=== PATIENT | male | born 1950 | race Caucasian/White ===

== ENCOUNTER 2016-08-11 19:05 | Inpatient (IN) | payer BC ==
--- NOTE | ~2016-08-11 | HP ---
History And Physical [address] [place]. [address] NAME: HAYDEN MARQUEZ : 46 STATUS : ADM IN PAT#: [id number] AGE: 66 ADM/REG DATE : 08/11/16 MR#: [id number] REPORT SERV DATE: 08/15/16 DICTATED BY: CHI TROTTER II DATE: 08/15/16 REPORT STATUS : Draft TRANSCRIBED BY: MODL DATE: 08/15/16 DATE OF ADMISSION: 08/11/2016 DATE OF SURGERY: 08/12/2016. CHIEF COMPLAINT: Thoracic pain. HISTORY OF PRESENT ILLNESS: This is a very friendly gentleman reporting severe pain for the last several months. He is admitted for pain control and likely definitive treatment of his osteomyelitis. PAST MEDICAL HISTORY: As above. MEDICATIONS: Please see the MAR. ALLERGIES: PLEASE SEE THE MAR. REVIEW OF SYSTEMS: The patient denies any bowel or bladder changes. He does report severe pain with some weakness in his lower extremities. PHYSICAL EXAMINATION: GENERAL: Examination reveals a gentleman in mild distress. He is awake, alert, and oriented. NECK: Supple. CHEST: Reveals no stridor on inspiration or expiration. CARDIOVASCULAR: Regular rate and rhythm. I palpated the radial pulse. ABDOMEN: Soft. BACK: Does reveal some focal kyphosis with some mild gibbus deformity. NEUROLOGICAL: He has 4/5 strength in the lower extremities. IMAGING DATA: Imaging reveals destruction of T11 and T12 consistent with diskitis and osteomyelitis. MEDICAL DECISION MAKING: A 66-year-old gentleman with thoracic osteomyelitis and diskitis. The plan will be for inpatient admission for pain control and likely surgical intervention. We will have Infectious Disease also help us with the management of this patient. REJI/ANDERS Chi Trotter II, M.D. / [id number] History And Physical [address] [place]. [address] NAME: HAYDEN MARQUEZ ODALIS : 46 STATUS : ADM IN [facility]#: [id number] AGE: 66 ADM/REG DATE : 08/11/16 MR#: [id number] REPORT SERV DATE: 08/15/16 DICTATED BY: CHI TROTTER II DATE: 08/15/16 REPORT STATUS : Draft TRANSCRIBED BY: BARIL DATE: 08/15/16 CC: Phong Simms II, D.O.
--- NOTE | ~2016-08-11 | CN ---
Consultation Report [facility] [address] [place]. [address] NAME: HAYDEN MERRITT : 46 STATUS : DIS IN PAT#: [id number] AGE: 66 ADM/REG DATE : 08/11/16 MR#: [id number] REPORT SERV DATE: 08/31/16 DICTATED BY: EDMUNDO ARVIZU DATE: 08/31/16 REPORT STATUS : Draft TRANSCRIBED BY: MODL DATE: 08/31/16 DATE OF CONSULTATION: HISTORY OF PRESENT ILLNESS: Mr. Merritt is a long-term patient, 66 years old, whom I have seen over the years for urinary retention secondary to urethral stricture disease. At some recent juncture, he was admitted to [facility] and was seen by Dr. Worthington there for urethral stricture disease. A suprapubic tube was placed and apparently according to Mr. Merritt, there are plans for urethroplasty to be done by Dr. Worthington. He is admitted with a nonurologic cause, that being diskitis and osteomyelitis following spinal surgery. He is currently being treated with broad-spectrum antibiotics and will/has been seen by Infectious Disease. PHYSICAL EXAMINATION: : Suprapubic tube is patent and draining clear yellow urine. Genitalia normal, uncircumcised with normal scrotum, testes, perineum. Rectal exam is not done at this time. EXTREMITIES: Unremarkable without edema. IMPRESSION: 1. Urethral stricture disease. 2. Suprapubic tube cystostomy diversion. PLAN: The patient is to go to surgery for debridement. Special care should be taken not to disrupt or dislodge the suprapubic tube. I will be available as needed and appreciate your asking me to see this long-term patient. MS/MODL Edmundo Arvizu M.D. / [id number] CC: Phong Simms II, D.O. Donald Hartsfield, D.O.
--- NOTE | ~2016-08-11 | CN ---
Consultation Report [facility] [address] [place]. [address] NAME: HAYDEN MARQUEZ : 46 STATUS : ADM IN PAT#: [id number] AGE: 66 ADM/REG DATE : 08/11/16 MR#: [id number] REPORT SERV DATE: 08/12/16 DICTATED BY: DANIS PENNINGTON DATE: 08/12/16 REPORT STATUS : Draft TRANSCRIBED BY: MODL DATE: 08/12/16 INFECTIOUS DISEASE CONSULTATION DATE OF CONSULTATION: 08/12/2016 REASON FOR CONSULTATION: Thoracic diskitis/osteomyelitis. HISTORY OF PRESENT ILLNESS: This is a 66-year-old man with a past medical history notable for coronary artery disease, hypertension, hyperlipidemia, osteoarthritis, and bilateral total knee arthroplasties. He also more recently was found to have urethral stricture which had caused him progressive difficulties with voiding beginning sometime in the latter part of 2015. He states that in mid March of this year he started getting some back pain and spasms. He was then hospitalized at [facility] on 05/13 with a febrile illness. The patient tells me he was told he had pneumonia, E. coli, and UTI. He is uncertain if he has had positive blood cultures. I called the microbiology laboratory at [place] and they have no record of any positive blood cultures at that time. The patient was at [facility] for two and half weeks. During that hospitalization, he had a suprapubic catheter placed. He was discharged to [facility] where he remained until 06/14. During this whole period of time, he says he had persistent mid back pain which became progressively worse, but did not have any evaluation for it. Eventually, after this continued to be a worsening problem he was seen by his primary care provider, Dr. Terrell and an MRI scan was ordered which was done yesterday and by report shows changes of T11-T12 diskitis and osteomyelitis. He was referred to Dr. Pathak, who admitted him to the hospital and plans are made for surgical therapy later today. He denies any fevers, chills, or sweats. He has been afebrile here. Other than his hospitalization in April and infection issues then he denies other recent infections including a dental infections or skin or soft tissue infections. He does as mentioned had a suprapubic catheter and has been followed by Urology and has this changed on a monthly basis. PAST MEDICAL HISTORY: As outlined above. In addition, he developed infection complicating his right total knee arthroplasty requiring revision by Dr. Mccormick, I believe in 2013 or 2014. 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 He has done well since the revision and he has had no problems with the left knee. The patient states that years prior to the right knee replacement he had group B strep, right knee septic arthritis. Other medical problems have included diverticulitis, history of hematuria, and cataracts. He has had an appendectomy and some dental extractions and has full dentures now. He does have a cardiac stents. He has past history of cystoscopies. ALLERGIES: NO KNOWN ANTIBIOTIC ALLERGIES. HE HAS AN ALLERGY TO NAPROXEN AND TO LATEX. OUTPATIENT MEDICATIONS: Included Tylenol, aspirin, Colace p.r.n., hydrocodone, Robaxin, metoprolol, Crestor, and Flomax. Naproxen is actually listed also as an outpatient medication, even though it is also listed as an allergy. Consultation Report [address] [address] NAME: HAYDEN MARQUEZ : 46 STATUS : ADM IN [facility]#: [id number] AGE: 66 ADM/REG DATE : 08/11/16 MR#: [id number] REPORT SERV DATE: 08/12/16 DICTATED BY: DANIS PENNINGTON DATE: 08/12/16 REPORT STATUS : Draft TRANSCRIBED BY: ANDERS DATE: 08/12/16 SOCIAL HISTORY: He lives alone. No pets. Past smoker. Occasional alcohol. No pertinent recent travel history. FAMILY HISTORY: Notable for coronary artery disease and diabetes. REVIEW OF SYSTEMS: As outlined above. In addition, no significant headache, chest pain, cough, nausea, vomiting, diarrhea. He is doing fine. Otherwise, as noted in the HPI. The rest of the full review of systems is negative. PHYSICAL EXAMINATION: VITAL SIGNS: The patient weighs 93 kg. He is afebrile. Blood pressure 137/83, pulse 84, respiratory rate 14. GENERAL: He is alert, no acute distress. HEAD AND NECK: Extraocular movements intact. The oral cavity shows dentures. No thrush. No ulcers. Neck is supple. No adenopathy. LUNGS: Clear to auscultation. CARDIAC: Regular rate and rhythm. Normal S1, S2 without murmur, gallop, or rub. ABDOMEN: Soft and nontender. He has a suprapubic catheter in place without surrounding erythema. No masses. EXTREMITIES: Bilateral total knee arthroplasties are without signs of inflammation. He has no significant edema. SKIN: Without rash. BACK: I did not examine his back secondary to his discomfort. LABORATORY STUDIES: White blood cell count 10.8, hemoglobin 15.0, platelets 269. Creatinine 1.02. Albumin 3.6, alkaline phosphatase 145, other liver function tests normal. Procalcitonin 0.05. Urinalysis on admission large leukocyte esterase, greater than 182 white blood cells. Urine culture pending. Blood cultures negative to date. Chest x-ray is negative. IMPRESSION: T11-12 diskitis/osteomyelitis. The history is suspicious for possible urinary tract source. PLAN: 1. We will hold off on antibiotics until intraoperative cultures are obtained and then begin empiric vancomycin and cefepime. I do believe we need to cover gram-negative rods empirically given the possible urinary tract source and his history of E. coli infection in April. 2. Anticipate six weeks of IV antibiotics, although if this turns out to be a quinolone- sensitive gram-negative infection, we may be able to treat him for a part of his course of therapy with oral quinolone therapy. Consultation Report [address] [place]. [address] NAME: HAYDEN MARQUEZ : 46 STATUS : ADM IN [facility]#: [id number] AGE: 66 ADM/REG DATE : 08/11/16 MR#: [id number] REPORT SERV DATE: 08/12/16 DICTATED BY: DANIS PENNINGTON DATE: 08/12/16 REPORT STATUS : Draft TRANSCRIBED BY: ANDERS DATE: 08/12/16 ADRIANO/ANDERS Danis Pennington M.D. / [id number] CC: Phong Simms II, Donald W.
--- NOTE | ~2016-08-11 | OP ---
Record Of [facility] [address] [place] [place]. [address] NAME: HAYDEN MARQUEZ : 46 STATUS : ADM IN [facility]#: [id number] AGE: 66 ADM/REG DATE : 08/11/16 MR#: [id number] REPORT SERV DATE: 08/15/16 DICTATED BY: CHI PATHAK II DATE: 08/15/16 REPORT STATUS : Draft TRANSCRIBED BY: MODL DATE: 08/15/16 DATE OF PROCEDURE: 08/11/2016 PREOPERATIVE DIAGNOSIS: Hematogenous diskitis with osteomyelitis with significant/severe thoracic pain. POSTOPERATIVE DIAGNOSIS: Hematogenous diskitis with osteomyelitis with significant/severe thoracic pain. PROCEDURES: 1. Posterior laminectomy T11-T12. 2. Partial corpectomy T11. 3. Partial corpectomy T12. 4. Application of prosthetic device, T11-T12. 5. Interbody arthrodesis T11-T12. 6. Posterior lateral fusion T9-10, T10-T11, T11-T12, T12-L1, and L1-L2. 7. Posterior segmental instrumentation, T9-L2. 8. Use of the microscope and stereotactic spinal imaging. 9. Use of allograft substitute and bone morphogenic protein. 10.Open biopsy of T11-T12. SURGEON: Chi Pathak M.D. FLUIDS: 1800 mL LR. ESTIMATED BLOOD LOSS: 300 mL. DRAINS: One drain. COMPLICATIONS: None. ANTIBIOTICS: Given following cultures. SPECIMENS: Sent to pathology. PREOPERATIVE HISTORY: This is a friendly 66-year-old gentleman with an intractable thoracic pain secondary to hematogenous osteomyelitis and diskitis. We discussed the pros and cons of surgery. We discussed the goal of surgery was to hopefully eradicate infection, but there could be some need for long-term suppressive antibiotics. DESCRIPTION OF PROCEDURE: After informed consent was obtained, the patient was brought to the operating room at his request and general anesthesia achieved. He was placed in the prone position. The back was prepped and draped in a sterile fashion. The incision was now made and the dissection was performed from T9 to L2. The deep retractors were placed. Next, at this point, the clamp was placed upon the spinous process and the intraoperative CT Record Of [facility] [address] [place] [place]. [address] NAME: HAYDEN MARQUEZ : 46 STATUS : ADM IN PAT#: [id number] AGE: 66 ADM/REG DATE : 08/11/16 MR#: [id number] REPORT SERV DATE: 08/15/16 DICTATED BY: CHI PATHAK II DATE: 08/15/16 REPORT STATUS : Draft TRANSCRIBED BY: MODMandy DATE: 08/15/16 scan completed. Stereotactic guidance was then used throughout the case. Next, the T11-T12 destruction was easily noted on the CT scan. The laminectomy was now performed at T11-T12. There was no obvious epidural abscess. There was however some broad inflammation and induration noted along the dura. At this point, the cord was well decompressed at this level. Next, the exiting nerve root was then sacrificed to allow better visualization and debridement. A silk suture was used for ligation followed by transection of the exiting nerve root. At this point, the disk space was noted to be significantly destroyed. The area was now cultured. At this point, debridement was now aggressively performed of the disk space and samples taken for pathology to review. Antibiotics were now given intravenously. At this point, we then performed a partial corpectomy of T11 and T12. This involves use of the curettes and the lake. We were able to use stereotactic guidance to assure that we were reaching to the far side of the disk space and the vertebral bodies. Approximately 30% of the bodies were debrided and the corpectomy carried out. At this point, the area was copiously irrigated. Healthy bleeding bone was identified. Allograft substitute and a small portion of bone morphogenic protein were placed into the disk space. The prosthetic device was then placed. This was an expandable type device (Globus). Next, at this point, the posterior pedicle screw segmental instrumentation was placed using stereotactic guidance. This was placed from T9 to L2, although we did skip T11 and T12. The repeat CT scan confirmed acceptable placement of the implants. The rods were then well assembled and final tightening performed. Next, the area was now decorticated in terms of the transverse processes at T9, T10, T11, T12, L1, and L2. Allograft substitute and bone morphogenic protein were then placed along these decorticated surfaces. A deep drain was placed. A standard closure was performed and the patient was now extubated and transferred to PACU in stable condition. JJ/BARIL Chi Pathak II, M.D. / [id number] CC: Phong Simms II, D.O.
--- NOTE | ~2016-08-11 | CN ---
Consultation Report [facility] [address] [place]. [address] NAME: HAYDEN MARQUEZ : 46 STATUS : ADM IN PAT#: [id number] AGE: 66 ADM/REG DATE : 08/11/16 MR#: [id number] REPORT SERV DATE: 08/12/16 DICTATED BY: SONIA SANTO DATE: 08/12/16 REPORT STATUS : Draft TRANSCRIBED BY: MODL DATE: 08/12/16 CONSULTATION DATE OF CONSULTATION: 08/11/2016 REASON FOR CONSULTATION: Consulted for medical management. IDENTIFYING DATA: 1. Research Agricultural Engineer is Dr. Mai Hobbs, previously seen by Dr. Faisal Oconnell as well as Dr. Ramy Hardwick. 2. Urologist presently is Dr. Fermin Worthington, previously was seen by Dr. Edmundo Llanos as well as Dr. Eusebio Back. 3. Orthopedics Dr. Panchito Foreman as well as Dr. Kulwant Pathak, II. HISTORY OF PRESENT ILLNESS: This is a pleasant 66-year-old male, who has a history of coronary artery disease, a previous MA with stents in 2009, high cholesterol, hypertension, frequent UTIs for which he has a suprapubic catheter from urethral strictures. The patient is admitted for Orthopedic for T11-T12 diskitis and osteomyelitis. The patient states that he has had pain in his back since March. He states in April, he was unable to walk. He was admitted to [facility] at that time for urinary tract infection as well as pneumonia, and treated, discharged home. His back pain worsened especially over the three to four weeks previous to where he saw his PCP. He had an outpatient MRI at [facility], was referred to Dr. Kulwant Pathak, who did additional x-rays in his office. The patient was sent to [facility] for back pain in the lumbar T11-T12 as well as infection in his back, for which Infectious Disease has been consulted. The hospitalist group has been consulted to help manage with medical issues while the patient is inpatient. The patient's history was obtained through interview with the patient coupled with review of [facility] and [facility]. PAST MEDICAL HISTORY: 1. Coronary artery disease. 2. High cholesterol. 3. Hypertension. 4. An inferior MA in 12/2009. 5. Arthritis. 6. Frequent UTIs. 7. Wears glasses. 8. Hard of hearing. 9. Urethral strictures. 10.Diverticulitis. 11.Hematuria with clots in the past when on anticoagulant use, which he is now off, Effient. 12.Cataracts. Consultation Report [facility] [address] [place]. [address] NAME: HAYDEN MARQUEZ : 46 STATUS : ADM IN PAT#: [id number] AGE: 66 ADM/REG DATE : 08/11/16 MR#: [id number] REPORT SERV DATE: 08/12/16 DICTATED BY: SONIA SANTO DATE: 08/12/16 REPORT STATUS : Draft TRANSCRIBED BY: ANDERS DATE: 08/12/16 ALLERGIES: THE PATIENT IS ALLERGIC TO: 1. NAPROXEN. 2. LATEX. 3. MUSHROOMS. 4. HIS CHART SAYS SIMVASTATIN, BUT HE IS NOT AWARE THAT HE IS ALLERGIC TO SIMVASTATIN. HOME MEDICATIONS: 1. Tylenol 650 mg p.o. twice a day p.r.n. [id number] pain. 2. Aspirin 81 mg p.o. at bedtime. 3. Colace 100 mg p.o. at bedtime. 4. Benzonia 5/325 mg one tab p.o. twice a day p.r.n. severe pain. 5. Robaxin 250 to 500 mg p.o. twice a day p.r.n. muscle tightness or spasm. 6. Lopressor 25 mg p.o. every evening. He was prescribed 25 mg b.i.d., but the patient states he decreased the frequency due to having problems at home with hypotension. 7. Aleve 220 mg p.o. twice a day p.r.n. 8. Crestor 10 mg p.o. every evening. 9. Flomax 0.4 mg p.o. every evening. SOCIAL HISTORY: The patient is retired. Was a previous smoker, quit in 2009. Lives in a single-level home. Has to utilize a cane for ambulation due to his back pain. Has had a history of occasional beer and wine. FAMILY HISTORY: Positive for: 1. Arthritis. 2. Cancer. 3. Diabetes. 4. Coronary artery disease. 5. Some general anesthesia problems. SURGICAL HISTORY: 1. The patient had a previous cardiac cath with stents in 2009, drug-eluting stents to the proximal and mid RCA. 2. Appendectomy age 19. 3. Teeth extraction, 2003. 4. Colonoscopy, 2003. 5. Urethral surgery for blockage in 2001. 6. Cystoscopy, dilatation, clot evacuation, and Franks placement on 01/03/2010. 7. Cystoscopy, dilatation, Franks cath placement, 01/05/2008. 8. Right TKA in 2011. 9. Left TKA in 2011. 10.Several infections with I and D to knees. REVIEW OF SYSTEMS: Negative other than what is in HPI. The patient is alert and oriented x3. No shortness of Consultation Report [address] [place]. [address] NAME: HAYDEN MARQUEZ : 46 STATUS : ADM IN [facility]#: [id number] AGE: 66 ADM/REG DATE : 08/11/16 MR#: [id number] REPORT SERV DATE: 08/12/16 DICTATED BY: SONIA SANTO DATE: 08/12/16 REPORT STATUS : Draft TRANSCRIBED BY: ANDERS DATE: 08/12/16 breath. No nausea or vomiting. No abdominal pain. No chest pain. No fever. Displays no confusion or agitation. PHYSICAL EXAMINATION: VITAL SIGNS: From today; blood pressure 145/84, respiratory rate 20, heart rate 108, temperature 97.1, O2 saturation 99% on room air. GENERAL: This is a very pleasant male resting in bed in no acute distress. NEURO: His head is atraumatic, normocephalic. He is alert and oriented x3. Cranial nerves appear intact. Mood pleasant and appropriate. NECK: Supple. Trachea is midline. No JVD noted. No obvious thyromegaly or lymphadenopathy. EENT: Sclerae are nonicteric. Pupils are equal and reactive to light. Nares are patent. Mucous membranes moist. Tongue is midline without deviation. Soft palate rises equally with phonation. CHEST: No pain with palpation. LUNGS: Clear to auscultation bilaterally. The patient has normal respiratory effort. No increased work of breathing with conversation. No history of lung problems. Is on room air with O2 saturation at 99%. CARDIOVASCULAR: S1, S2. No obvious murmurs, rubs, or gallops. He will be placed on defensive monitoring. On auscultation, his rhythm is regular with a rate at 108. ABDOMEN: Soft, nontender. He does have active bowel sounds. No palpable organomegaly. Last bowel movement was on 08/10/2016. He does have a suprapubic catheter in place and clamped. EXTREMITIES: No edema. Normal distal pulses. No calf tenderness. He will have TEDs and SCDs in place for DVT prophylaxis. SKIN: Warm and dry. No unusual rashes or lesions. Normal color and turgor. PSYCH: The patient is pleasant and cooperative. Appropriate mood and affect. LABORATORY DATA: Sodium 143, potassium 3.8, chloride 111, bicarb 25, BUN 13, creatinine 1.02. GFR 75, glucose 110, calcium 9.5, white blood cells 10.8, hemoglobin 15.0, hematocrit 44.0, platelets 269, alkaline phosphatase 145, ALT 14, AST 15. Present blood sugar is 114. On 08/11/2016, the patient had a chest x-ray that is pending results. On 08/11/2016, the patient had an ECG that showed normal sinus rhythm, inferior infarct, age undetermined, rate at 99. On 10/17/2013, the patient had an echo that showed no significant valvular regurg, outflow velocities normal, and diastolic dysfunction noted. On 10/17/2013, the patient had a myocardial perfusion imaging that showed no ischemia, LVEF 55%, and low risk vasodilator stress test. ASSESSMENT AND PLAN: 1. The patient does have a history of hypertension. He also has a history of coronary artery disease with drug-eluting stents to the proximal and mid RCA in 2009. He is placed on a cardiac diet. We will place him on defensive monitoring. We will continue his cardiac medications of metoprolol and aspirin, and the patient does have a cardiac consult for the a.m. 2. Hypercholesterolemia. Aware. We will continue the patient's Crestor. Consultation Report [place] [id number] [facility] [place]. [address] NAME: HAYDEN MARQUEZ : 46 STATUS : ADM IN [facility]#: [id number] AGE: 66 ADM/REG DATE : 08/11/16 MR#: [id number] REPORT SERV DATE: 08/12/16 DICTATED BY: SONIA SANTO DATE: 08/12/16 REPORT STATUS : Draft TRANSCRIBED BY: MODMandy DATE: 08/12/16 3. Benign prostatic hypertrophy. The patient has a history of urinary strictures. He has had frequent cystoscopies with dilatation. He does have a suprapubic catheter in place. He is on a home medication of Flomax and that will be continued inpatient. 4. Lumbar pain. The patient has a history of arthritis. He is admitted with T11-T12 diskitis and osteomyelitis. He will be seen per ID and management of antibiotics per ID. Pain control will be with Benzonia, Robaxin, and [employer]EL is ordered per Ortho as needed for pain. He had outpatient imaging and we will need to obtain the MRI record from [facility] as well as x-rays from Dr. Pathak's office. 5. Suprapubic catheter. We are aware. The patient does keep it clamped will place him on half normal saline at [address] him on electrolyte protocol. We will hold Aleve and we will check a urinalysis. 6. Labs to be obtained, CBC, urinalysis, BMP, EKG, portable chest x-ray, blood cultures x2, magnesium, phosphorus, lactate, and procalcitonin. The hospitalist group would like to thank you for this consultation. Please let us know if we could be of further assistance. GISELLE Sonia Santo NP / [id number] CC: Phong Simms II, D.O.
--- NOTE | ~2016-08-11 | DS ---
Discharge Summary [facility] [address] [place]. [address] NAME: HAYDEN MARQUEZ : 46 STATUS : DIS IN PAT#: [id number] AGE: 66 ADM/REG DATE : 08/11/16 MR#: [id number] REPORT SERV DATE: 08/26/16 DICTATED BY: CHI PATHAK II DATE: 08/25/16 REPORT STATUS : Draft TRANSCRIBED BY: MODMandy DATE: 08/25/16 Data Collection from hospitalization DISCHARGE DIAGNOSES: 1. Hematogenous diskitis with osteomyelitis with significant/severe thoracic pain. 2. Hypertension. 3. Coronary artery disease. 4. Hypercholesterolemia. 5. History of inferior myocardial infarction. 6. Arthritis. 7. History of frequent urinary tract infections. 8. Hard of hearing. 9. History of urethral strictures. 10.Diverticulitis. 11.History of hematuria. 12.Cataracts. CONSULTATIONS: 1. Sonia Bray NP. 2. Dl Pennington M.D. PROCEDURES PERFORMED: Posterior laminectomy at T11-T12; partial corpectomy at T11; partial corpectomy at T12; application of prosthetic device at T11-T12; interbody arthrodesis at T11 T12; posterior lateral fusion at T9-T10, T10-T11, T11-T12, T12-L1, and L1-L2; posterior segmental instrumentation at T9-L2; use of microscope and stereotactic spinal imaging; use of allograft substitute and bone morphogenic protein; open biopsy of T11-T12 on 08/11/2016. PATHOLOGY: Vertebral bone biopsy T11-T12 - periosteum showed hemorrhage and scattered neutrophils with neovascularization and myofibroblastic proliferation, bone - dense cortical bone without adjacent marrow and no specific histologic alteration. Lumbar and thoracic bone biopsy T9-L2 - marked degenerative changes with bony remodeling with scattered hemosiderin laden macrophages, no definite neutrophilic infiltration recognized, bone marrow - trilineage hematopoiesis present. MEDICATIONS: Dulcolax 10 mg per rectum daily, Colace 100 mg at bedtime, Lopressor 25 mg every evening, Movantik 25 mg daily, Flomax 0.4 mg every evening, Tylenol 650 mg every four hours as needed, Mylanta 30 mL as needed, Dulcolax 15 mg as needed, Valium 5 mg every six hours as needed - hold for sedation, Robaxin 250 mg twice a day, citrate of magnesia 150 mg twice a day as needed, milk of magnesia 30 mL twice a day as needed, aspirin 81 mg at bedtime, Crestor 10 mg every evening, and hydrocodone 5/325 every four to six hours as needed for pain. CONDITION AT DISCHARGE: Stable. DISPOSITION: The patient was discharged to [facility] on a regular diet with activities as instructed. He would follow up with me three weeks following discharge. HOSPITAL COURSE: This is a 66-year-old man who has had severe pain over the past several Discharge [address] [place]. [address] NAME: HAYDEN MARQUEZ : 46 STATUS : DIS IN PAT#: [id number] AGE: 66 ADM/REG DATE : 08/11/16 MR#: [id number] REPORT SERV DATE: 08/26/16 DICTATED BY: CHI PATHAK II DATE: 08/25/16 REPORT STATUS : Draft TRANSCRIBED BY: ANDERS DATE: 08/25/16 months. The patient has thoracic osteomyelitis and diskitis. He was felt that he would need inpatient admission for pain control and likely surgical intervention. He was admitted to the hospital at this time for further evaluation and treatment. Upon admission, the patient was seen by Sonia Bray regarding medical management. The patient has a history of coronary artery disease and previous myocardial infarction with stenting in 2009, hypercholesterolemia, hypertension, and frequent urinary tract infections for which he has a suprapubic catheter for urethral strictures. The patient said he had pain in his back since March. He said in April he was unable walk. He had been admitted at [facility] at that time for urinary tract infection as well as pneumonia. He had been treated and discharged home. His back pain worsened over the past three to four weeks and he saw his primary care physician. He had an outpatient MRI at [facility] and was referred to me, and I did additional x-rays in the office. The Hospitalist Group was asked to help manage with medical issues while the patient was an inpatient. He was placed on a cardiac diet. He was placed on extensive monitoring. His cardiac medications of metoprolol and aspirin were continued. Crestor was continued. The patient has a suprapubic catheter in place. He was on Flomax and this was continued. [place], Robaxin, and TAKER OFF would be used for pain control. The patient does keep his suprapubic catheter clamped. He was placed on electrolyte protocol. Aleve was held. Urinalysis was going to be checked. Blood cultures were obtained. The following day, he was seen by Dr. Dl Pennington regarding thoracic diskitis/osteomyelitis. His white count was 10.8. Urinalysis had revealed large leukocyte esterase, greater than 182 white blood cells. Urine culture was pending. Blood cultures were negative to date. Chest x-ray was negative. The patient has T11-T12 diskitis/osteomyelitis. History is suspicious for possible urinary tract source. We would hold off on antibiotics until intraoperative cultures were obtained and then we would begin empiric vancomycin and cefepime. He did not think we would need to cover gram-negative rods empirically given the possible urinary tract source and his history of E. coli infection in April. He anticipated six weeks of IV antibiotics, although if this turned out to be quinolone sensitive gram-negative infection, we may be able to treat him for part of his course of therapy with oral quinolone therapy. Later that day, he was taken to the operating room where he underwent the above-mentioned procedure. He tolerated this well, and there were no complications. The patient was seen by Dr. Edmundo Llanos. The patient had urethral stricture with suprapubic tube diversion, the tube was currently last changed about a week prior to this admission. This suprapubic tube is changed monthly. A formal urethroplasty was anticipated to be performed in September. The tube was patent and currently plugged. On postop day #1, he was stable. He had a normal respiratory effort. He was evaluated by Physical Therapy. Blood cultures were negative. Vancomycin was discontinued. Cefepime was continued. He was tachycardic. An EKG was requested. On 08/14/2016, he complained of a lot of postop pain. We encouraged him to mobilize. He was evaluated by Occupational Therapy. On 08/15/2016, his pain was controlled. He was able to sit up in a bedside chair. His T- max was 100.6. White count was 10.2. Operative culture had revealed E. coli. He was making satisfactory progress. Three weeks of Ancef was being planned, then three to five weeks of oral quinolone. The next day, his T-max was 100.5. Ancef was continued. Discharge planning was performed. The Franks catheter remained in place. On 08/17/2016, he was stable. He was alert and cooperative. He had no edema. A PICC line was inserted. Discharge Summary [address] [place]. [address] NAME: HAYDEN MARQUEZ : 46 STATUS : DIS IN PAT#: [id number] AGE: 66 ADM/REG DATE : 08/11/16 MR#: [id number] REPORT SERV DATE: 08/26/16 DICTATED BY: CHI PATHAK II DATE: 08/25/16 REPORT STATUS : Draft TRANSCRIBED BY: MODL DATE: 08/25/16 Discharge instructions were given. Due to his improved and stable condition, he was discharged to [facility] with the above-stated instructions. Information collected by: Amie Young I submit the above information as my discharge summary. TG/MODL Chi Pathak II, M.D. / [id number] CC: Phong Simms II, D.O. Marty Scheinberg, M.D. [facility] Dl Pennington M.D.
[~2016-08-11 19:05] MED LIST: ALEVE220 MG PO; ASA5GR PO; CRESTOR10 PO; FISH OIL1200 MG PO; FLOMAX4 PO; GLUCCHONDR PO; LOP25 PO; MOBIC15 MG PO; MOVE FREE PO; PRILOSEC OTC20 MG PO; PRIN2.5 PO; TYLENOL ARTH650 MG PO; VOLT75 PO
[2016-08-11] MEDS ORDERED: DSS PO (21:50)
[2016-08-11] MEDS ORDERED: ASAB PO (21:50)
[2016-08-11] MEDS ORDERED: ALEVE220 MG PO (21:51)
[2016-08-11] MEDS ORDERED: T PO (21:51)
[2016-08-11] MEDS ORDERED: NORCO1 TA1 PO (21:52)
[2016-08-11] MEDS ORDERED: METHOC500B PO (21:52)
[2016-08-11] MEDS ORDERED: FLOMAX4 PO (21:52)
[2016-08-11] MEDS ORDERED: CRESTOR10 PO (21:52)
[2016-08-11] MEDS ORDERED: LOP25 PO (21:53)
[2016-08-11 22:13] LABS: BASOPHILS 0.3 %; BASOPHILS ABSOLUTE 0.03 10/3/uL (0.0-0.16); EOSINOPHILS 3.4 %; EOSINOPHILS ABSOLUTE 0.37 10/3/uL (0.0-0.53); IMMATURE GRANULOCYTES 0.3 %; IMMATURE GRANULOCYTES ABSOLUTE 0.03 10/3/uL (0.0-0.11); LYMPHOCYTES 32.2 %; LYMPHOCYTES ABSOLUTE 3.49 10/3/uL (0.67-4.30); MEAN PLATELET VOLUME 8.6 fL (9.2-13.0); MONOCYTES 6.7 %; MONOCYTES ABSOLUTE 0.73 10/3/uL (0.21-1.20); NEUTROPHILS 57.1 %; NEUTROPHILS ABSOLUTE 6.19 10/3/uL (2.02-8.40); PLATELET COUNT 269 10/3/uL (150-400); RBC DISTRIBUTION WIDTH 15.3 % (12.0-16.0); RED CELL COUNT 4.99 10/6/uL (4.7-6.1)
[2016-08-11 22:14] LABS: MANUAL DIFF NO %; MEAN CORPUS HGB CONC 34.1 g/dL (32.0-36.0); MEAN CORPUSCULAR HEMOGLOB 30.1 pg (26.0-34.0); MEAN CORPUSCULAR VOLUME 88.2 fL (80-100); WHITE BLOOD CELLS 10.8 10/3/uL (4.5-10.5)
[2016-08-11 22:28] LABS: ALBUMIN 3.6 G/DL (3.5-5.0); CALCIUM, SERUM 9.5 MG/DL (8.5-10.4); CHLORIDE, SERUM 111 MMOL/L (96-112); CO2 (CARBON DIOXIDE) 25 MMOL/L (24-34); CREATININE 1.02 MG/DL (0.70-1.30); GFR AFRICAN AMERICAN 87 ML/MIN (>=60); GFR NON AFRICAN AMERICAN 75 ML/MIN (>=60); POTASSIUM, SERUM 3.8 MMOL/L (3.5-5.3); SGOT(AST) 15 U/L (5-40); SGPT(ALT) 14 U/L (5-65); SODIUM, SERUM 143 MMOL/L (135-148); TOTAL BILIRUBIN 0.5 MG/DL (0-1.2); TOTAL PROTEIN 8.7 G/DL (6.0-8.5)
[2016-08-11 22:29] LABS: A/G RATIO 0.7 (0.7-1.9); ALKALINE PHOSPHATASE 145 U/L (45-117); BUN (BLOOD UREA NITROGEN) 13 MG/DL (6-23); GLOBULIN 5.1 G/DL (2.5-4.1); GLUCOSE, SERUM 110 MG/DL (60-99)
[2016-08-12 01:04] LABS: PHOSPHORUS, SERUM 2.8 MG/DL (2.5-4.5)
[2016-08-12 01:36] LABS: ASCORBIC ACID (UR NOT ORDER) NEG (NEG); BILIRUBIN, URINE NEGATIVE (NEG); KETONE, URINE NEGATIVE (NEG); LEUKOCYTE ESTERASE(NOT OR LARGE (NEG)
[2016-08-12 01:37] LABS: WBC (NOT ORDERED) (RFLEX) > 182 (0-5)
[2016-08-12 02:18] LABS: PROCALCITONIN 0.05 ng/mL (<0.5)
[2016-08-12 19:40] LABS: HEMATOCRIT 31.5 % (40.0-51.0); HEMOGLOBIN 10.5 g/dL (13.6-17.8)
[2016-08-13 04:54] LABS: BASOPHILS 0.4 %; BASOPHILS ABSOLUTE 0.04 10/3/uL (0.0-0.16); EOSINOPHILS 1.8 %; HEMATOCRIT 33.6 % (40.0-51.0); HEMOGLOBIN 11.2 g/dL (13.6-17.8); IMMATURE GRANULOCYTES 0.4 %; IMMATURE GRANULOCYTES ABSOLUTE 0.05 10/3/uL (0.0-0.11); LYMPHOCYTES 21.9 %; LYMPHOCYTES ABSOLUTE 2.47 10/3/uL (0.67-4.30); MEAN CORPUS HGB CONC 33.3 g/dL (32.0-36.0); MEAN CORPUSCULAR HEMOGLOB 29.7 pg (26.0-34.0); MEAN CORPUSCULAR VOLUME 89.1 fL (80-100); MEAN PLATELET VOLUME 8.5 fL (9.2-13.0); MONOCYTES 8.4 %; MONOCYTES ABSOLUTE 0.95 10/3/uL (0.21-1.20); NEUTROPHILS 67.1 %; NEUTROPHILS ABSOLUTE 7.55 10/3/uL (2.02-8.40); PLATELET COUNT 198 10/3/uL (150-400); RBC DISTRIBUTION WIDTH 15.1 % (12.0-16.0); WHITE BLOOD CELLS 11.3 10/3/uL (4.5-10.5)
[2016-08-13 04:56] LABS: RED CELL COUNT 3.77 10/6/uL (4.7-6.1)
[2016-08-13 05:26] LABS: MANUAL DIFF NO %
[2016-08-13 13:59] LABS: CREATININE 0.79 MG/DL (0.70-1.30)
[2016-08-14 05:23] LABS: BASOPHILS 0.2 %; BASOPHILS ABSOLUTE 0.02 10/3/uL (0.0-0.16); HEMATOCRIT 33.5 % (40.0-51.0); HEMOGLOBIN 11.2 g/dL (13.6-17.8); IMMATURE GRANULOCYTES 0.4 %; IMMATURE GRANULOCYTES ABSOLUTE 0.04 10/3/uL (0.0-0.11); LYMPHOCYTES 22.2 %; LYMPHOCYTES ABSOLUTE 2.26 10/3/uL (0.67-4.30); MEAN CORPUS HGB CONC 33.4 g/dL (32.0-36.0); MEAN CORPUSCULAR HEMOGLOB 29.9 pg (26.0-34.0); MEAN CORPUSCULAR VOLUME 89.6 fL (80-100); MEAN PLATELET VOLUME 8.3 fL (9.2-13.0); MONOCYTES 8.5 %; MONOCYTES ABSOLUTE 0.86 10/3/uL (0.21-1.20); NEUTROPHILS 65.7 %; NEUTROPHILS ABSOLUTE 6.68 10/3/uL (2.02-8.40); PLATELET COUNT 216 10/3/uL (150-400); RBC DISTRIBUTION WIDTH 14.7 % (12.0-16.0); RED CELL COUNT 3.74 10/6/uL (4.7-6.1); WHITE BLOOD CELLS 10.2 10/3/uL (4.5-10.5)
[2016-08-14 05:25] LABS: MANUAL DIFF NO %
[2016-08-14 05:38] LABS: CO2 (CARBON DIOXIDE) 27 MMOL/L (24-34); CREATININE 0.64 MG/DL (0.70-1.30); CREATININE 0.66 MG/DL (0.70-1.30); GFR AFRICAN AMERICAN 117 ML/MIN (>=60); GFR NON AFRICAN AMERICAN 101 ML/MIN (>=60); POTASSIUM, SERUM 3.8 MMOL/L (3.5-5.3)
[2016-08-14 05:44] LABS: BUN (BLOOD UREA NITROGEN) 7 MG/DL (6-23); CALCIUM, SERUM 8.2 MG/DL (8.5-10.4); CHLORIDE, SERUM 101 MMOL/L (96-112); GLUCOSE, SERUM 85 MG/DL (60-99); SODIUM, SERUM 133 MMOL/L (135-148)
[2016-08-17 04:15] LABS: BASOPHILS 0.3 %; BASOPHILS ABSOLUTE 0.02 10/3/uL (0.0-0.16); EOSINOPHILS 3.3 %; EOSINOPHILS ABSOLUTE 0.19 10/3/uL (0.0-0.53); HEMATOCRIT 28.9 % (40.0-51.0); HEMOGLOBIN 9.9 g/dL (13.6-17.8); IMMATURE GRANULOCYTES 0.3 %; IMMATURE GRANULOCYTES ABSOLUTE 0.02 10/3/uL (0.0-0.11); LYMPHOCYTES 26.9 %; LYMPHOCYTES ABSOLUTE 1.55 10/3/uL (0.67-4.30); MANUAL DIFF NO %; MEAN CORPUS HGB CONC 34.3 g/dL (32.0-36.0); MEAN CORPUSCULAR HEMOGLOB 29.7 pg (26.0-34.0); MEAN CORPUSCULAR VOLUME 86.8 fL (80-100); MEAN PLATELET VOLUME 8.4 fL (9.2-13.0); MONOCYTES 10.1 %; MONOCYTES ABSOLUTE 0.58 10/3/uL (0.21-1.20); NEUTROPHILS 59.1 %; NEUTROPHILS ABSOLUTE 3.41 10/3/uL (2.02-8.40); PLATELET COUNT 225 10/3/uL (150-400); RBC DISTRIBUTION WIDTH 14.4 % (12.0-16.0); RED CELL COUNT 3.33 10/6/uL (4.7-6.1); WHITE BLOOD CELLS 5.8 10/3/uL (4.5-10.5)
[2016-08-17 04:26] LABS: BUN (BLOOD UREA NITROGEN) 8 MG/DL (6-23); CALCIUM, SERUM 8.4 MG/DL (8.5-10.4); CHLORIDE, SERUM 105 MMOL/L (96-112); CO2 (CARBON DIOXIDE) 31 MMOL/L (24-34); CREATININE 0.56 MG/DL (0.70-1.30); GFR AFRICAN AMERICAN 123 ML/MIN (>=60); GFR NON AFRICAN AMERICAN 106 ML/MIN (>=60); GLUCOSE, SERUM 101 MG/DL (60-99); PHOSPHORUS, SERUM 2.8 MG/DL (2.5-4.5); POTASSIUM, SERUM 3.7 MMOL/L (3.5-5.3)
[2016-08-17 04:30] LABS: SODIUM, SERUM 141 MMOL/L (135-148)
[2016-08-17 05:28] LABS: PROCALCITONIN 0.13 ng/mL (<0.5)
== END 2016-08-17 17:14 | DRG 458 ==
LOC: 3SO 19:05
PROVIDERS: Anesthesiology; Internal Medicine Infectious Disease; Orthopaedic Surgery; Student in an Organized Health Care Education/Training Program
PROC: 0RG7071 Fusion of 2 to 7 Thoracic Vertebral Joints with Autologous Tissue Substitute, Posterior Approach, Posterior Column, Open Approach (ICD-10-PCS; principal; 2016-08-11)
PROC: 0RG60AJ Fusion of Thoracic Vertebral Joint with Interbody Fusion Device, Posterior Approach, Anterior Column, Open Approach (ICD-10-PCS; 2016-08-11)
PROC: 0PB40ZX Excision of Thoracic Vertebra, Open Approach, Diagnostic (ICD-10-PCS; 2016-08-11)
PROC: 4A11X4G Monitoring of Peripheral Nervous Electrical Activity, Intraoperative, External Approach (ICD-10-PCS; 2016-08-11)
DX: M46.24 Osteomyelitis of vertebra, thoracic region (principal); I10 Essential (primary) hypertension; E78.00 Pure hypercholesterolemia, unspecified; N40.0 Benign prostatic hyperplasia without lower urinary tract symptoms
CPT/HCPCS: 36569; 71010; 80048; 80053; 81001; 82565; 82962; 83605; 83735; 84100; 84145; 85014; 85018; 85025; 87015; 87040; 87070; 87075; 87077; 87086; 87102; 87116; 87186; 87205; 88304; 88307; 88311; 93005; 97110-GO; 97110-GP; 97116-GP; 97161-GP; 97166-GO; 97530-GP; A9270-GY; C1713; C1751; C1768; J0690; J0692; J1644; J2250; J2370; J2405; J2710; J3010; J3370; P9045